=== PATIENT | female | born 1990 | race Asian ===

== ENCOUNTER 2017-08-09 09:16 | Inpatient (IN) | payer SELFPAY ==
[~2017-08-09] VITALS: Ht 164 cm; Wt 67.1 kg
[2017-08-12 01:57] VITALS: BP 111/57
[2017-08-12 02:29] LABS: BASOPHILS # (AUTO) 0.2 K/uL (0.00-0.22); BASOPHILS % (AUTO) 2.2 % (0.0-2.0); EOSINOPHILS # (AUTO) 0.1 K/uL (0-0.4); EOSINOPHILS % (AUTO) 0.8 % (0.0-4.0); HEMATOCRIT 36.5 % (36-48); LYMPHOCYTES % (AUTO) 11.6 % (20.5-51.1); MEAN CORPUSCULAR HEMOGLOBIN 32 pg (27-31); MEAN CORPUSCULAR HGB CONC 33 g/dL (33-37); MEAN CORPUSCULAR VOLUME 96 fL (80-94); MONOCYTES # (AUTO) 0.9 K/uL (0.8-1.0); MONOCYTES % (AUTO) 10.3 % (1.7-9.3); NEUTROPHILS # (AUTO) 6.6 K/uL (1.8-7.7); NEUTROPHILS % (AUTO) 75.1 % (42.2-75.2); PLATELET COUNT (AUTO) 175 K/uL (140-450); RED CELL DISTRIBUTION WIDTH 13.7 % (11.6-13.7); WHITE BLOOD COUNT (AUTO) 8.8 K/uL (4.8-10.8)
[2017-08-12 02:31] LABS: APPEARANCE,URINE CLEAR (CLEAR); BILIRUBIN,URINE NEGATIVE (NEGATIVE); BLOOD, URINE NEGATIVE (NEGATIVE); COLOR,URINE YELLOW (YELLOW); LEUKOCYTE ESTERASE ,URINE NEGATIVE (NEGATIVE); NITRITE, URINE NEGATIVE (NEGATIVE); UGLUCOSE NEGATIVE (NEGATIVE)
[2017-08-12] MEDS ORDERED: LACTATED RINGERS 1,000 ML IV SCH (02:36)
[2017-08-12 02:40] LABS: ALBUMIN 2.8 g/dL (3.4-5.0); ANION GAP 13.9 (8-16); CARBON DIOXIDE 23.5 mmol/L (21-32); CREATININE 0.6 mg/dL (0.6-1.3); POTASSIUM 3.4 mmol/L (3.5-5.1); TOTAL BILIRUBIN 0.3 mg/dL (0.0-1.0)
[2017-08-12] MEDS ORDERED: NALBUPHINE HYDROCHLORIDE 10 MG/ML VIAL IVP PRN (02:40)
[2017-08-12] MEDS ORDERED: PROMETHAZINE 25 MG/ML VIAL IVP PRN (02:40)
[2017-08-12] MEDS ORDERED: OXYTOCIN 20 UNITS in LACTATED RINGERS 1,000 ML IV SCH (02:40)
[2017-08-12] MEDS ORDERED: CARBOPROST 250 MCG/ML AMP IM PRN (02:40)
[2017-08-12] MEDS ORDERED: METHYLERGONOVINE 0.2 MG/ML AMP IM PRN ×2 (02:40→17:00)
[2017-08-12] MEDS ORDERED: MISOPROSTOL 25 MCG TAB ONE ×2 (03:12→07:55)
[2017-08-12] MEDS ORDERED: MISOPROSTOL 25 MCG TAB VG SCH (04:00)
[2017-08-12] MEDS ORDERED: INFLUENZA VIRUS VACCINE QUAD 0.5 ML SYR IMVAC SCH (07:00)
[2017-08-12] MEDS ORDERED: OXYTOCIN 10 UNITS/ML VIAL IM SCH (07:00)
--- NOTE | 2017-08-12 07:57 | NUR ---
PATIENT HAS BEEN SCREENED AND CATEGORIZED LOW NUTRITION RISK. PATIENT WILL BE SEEN WITHIN 7 DAYS OF ADMISSION. 08/18/[address]
[2017-08-12] MEDS ORDERED: NALBUPHINE HYDROCHLORIDE 10 MG/ML VIAL ONE ×2 (12:42→12:44)
[2017-08-12] MEDS ORDERED: ROPIVACAINE 0.2%/NS PREMIX 250 ML EPI ONE (13:52)
[2017-08-12] MEDS ORDERED: OXYTOCIN 20 UNITS/LR PREMIX 1,000 ML IV ONE (14:22)
[2017-08-12] MEDS ORDERED: MEASLES, MUMPS, AND RUBELLA 1 VIAL SQVAC PRN (17:00)
[2017-08-12] MEDS ORDERED: BENZOCAINE/MENTHOL 20%-0.5% 60 GM CAN TP PRN (17:00)
[2017-08-12] MEDS ORDERED: oxyCODONE/APAP 5/325 MG 1 TAB TAB PO PRN (17:00)
[2017-08-12] MEDS ORDERED: TEMAZEPAM 15 MG CAP PO PRN (17:00)
[2017-08-12] MEDS ORDERED: OXYTOCIN 10 UNITS/ML VIAL IM PRN (17:00)
[2017-08-12] MEDS ORDERED: OXYTOCIN 10 UNITS/ML VIAL ONE (18:04)
[2017-08-12] MEDS ORDERED: DOCUSATE SOD/SENNA 50/8.6 MG 1 TAB PO SCH (21:00)
[2017-08-13] MEDS ORDERED: AMMONIA AROMATIC 1 INHL INH ONE (00:33)
[2017-08-13] MEDS: HYDROcodone/APAP 5/325 MG 1 TAB TAB PO PRN (01:00)
[2017-08-13] MEDS ORDERED: HYDROcodone/APAP 5/325 MG 1 TAB TAB ONE (01:05)
[2017-08-13] MEDS ORDERED: OXYTOCIN 20 UNITS in LACTATED RINGERS 1,000 ML IV SCH (02:40)
[2017-08-13] MEDS: IBUPROFEN 800 MG TAB PO PRN ×3 (05:21→18:54)
[2017-08-13 05:37] LABS: HEMATOCRIT 33.2 % (36-48); HEMOGLOBIN 11.2 g/dL (12.0-16.0)
[2017-08-14] MEDS ORDERED: DOCUSATE SOD/SENNA 50/8.6 MG 1 TAB PO PRN (00:15)
[2017-08-14] MEDS ORDERED: DOCUSATE SOD/SENNA 50/8.6 MG 1 TAB PO SCH (00:15)
[2017-08-14] MEDS: HYDROcodone/APAP 5/325 MG 1 TAB TAB PO PRN (03:25)
== END 2017-08-14 15:00 | disposition home or self-care (01) | DRG 775 ==
LOC: MFCC 08-12 00:25
PROVIDERS: ADMIT Obstetrics & Gynecology; ATTEND Obstetrics & Gynecology
PROC: 10E0XZZ Delivery of Products of Conception, External Approach (ICD-10-PCS; principal; 2017-08-12)
DX: O80 Encounter for full-term uncomplicated delivery (principal); Z37.0 Single live birth; Z3A.00 Weeks of gestation of pregnancy not specified
CPT/HCPCS: 36415; 51702; 59200; 80053; 81003; 85018; 85025; 86592; 86886; 86900; 86901; 90707; J2300; J2590; J2795; J7120